=== PATIENT | female | born 1995 | race American Indian/Alaskan Native ===

== ENCOUNTER 2018-05-07 10:35 | Emergency (ER) | payer SELFPAY ==
[2018-05-07 10:54] VITALS: BP 132/94
[2018-05-07 11:33] LABS: Bilirubin,Urine NEG (Negative); Blood,Urine NEG (Negative); Color,Urine Amber (Yellow); Mucus,Urine 3+ /HPF
[2018-05-07 11:34] LABS: HCG Qualitative,Urine Negative (Negative)
--- NOTE | 2018-05-07 11:41 | Emergency Department Report ---
ED General Adult HPI - General Chief complaint: Abdominal Pain Stated complaint: HEAD/STOMACH PAIN VOMITING Time Seen by Provider: 05/07/18 11:33 Source: patient Mode of arrival: Ambulatory Limitations: No Limitations - History of Present Illness Initial comments: Patient is a 23-year-old female who is presenting with vertigo- type symptoms. Past 2 days. Patient states that when she turns her head to the right she feels a spinning sensation and has been nauseous with vomiting. Patient states she feels somewhat better when she is laying on her left side. Patient denies any neck stiffness or fevers chills. Patient does state she has a mild headache. She denies any focal neurological symptoms. - Related Data Previous Rx's Medication Instructions Recorded Last Taken Type Meclizine [Antivert] 25 mg PO TID PRN #12 tablet 05/07/18 Unknown Rx Ondansetron [Zofran Odt] 4 mg PO Q8HR PRN #10 tab.rapdis 05/07/18 Unknown Rx predniSONE [Deltasone] 20 mg PO QDAY #5 tab 05/07/18 Unknown Rx Allergies Allergy/AdvReac Type Severity Reaction Status Date / Time No Known Allergies Allergy Unverified 05/07/18 10:52 ED Review of Systems ROS: Stated complaint: HEAD/STOMACH PAIN VOMITING Other details as noted in HPI Comment: All other systems reviewed and negative ED Past Medical Hx - Past Medical History Previous Medical History?: No - Surgical History Past Surgical History?: No - Social History Smoking Status: Never Smoker Substance Use Type: None - Medications Home Medications: Home Medications Medication Instructions Recorded Confirmed Last Taken Type Meclizine [Antivert] 25 mg PO TID PRN #12 tablet 05/07/18 Unknown Rx Ondansetron [Zofran Odt] 4 mg PO Q8HR PRN #10 tab.rapdis 05/07/18 Unknown Rx predniSONE [Deltasone] 20 mg PO QDAY #5 tab 05/07/18 Unknown Rx ED Physical Exam - General Limitations: No Limitations General appearance: alert, in no apparent distress - Head Head exam: Present: atraumatic, normocephalic - Eye Eye exam: Present: normal appearance - ENT ENT exam: Present: mucous membranes moist - Neck Neck exam: Present: normal inspection - Respiratory Respiratory exam: Present: normal lung sounds bilaterally. Absent: respiratory distress, wheezes, rales, rhonchi - Cardiovascular Cardiovascular Exam: Present: regular rate, normal rhythm. Absent: systolic murmur, diastolic murmur, rubs, gallop - GI/Abdominal GI/Abdominal exam: Present: soft, normal bowel sounds. Absent: distended, tenderness, guarding, rebound - Extremities Exam Extremities exam: Present: normal inspection - Back Exam Back exam: Present: normal inspection - Neurological Exam Neurological exam: Present: alert, oriented X3 - Psychiatric Psychiatric exam: Present: normal affect, normal mood - Skin Skin exam: Present: warm, dry, intact, normal color. Absent: rash ED Course Vital Signs 05/07/18 05/07/18 10:52 11:29 Temperature 98.5 F Pulse Rate 100 H Respiratory 20 17 Rate Blood Pressure 132/94 O2 Sat by Pulse 98 Oximetry ED Medical Decision Making - Medical Decision Making Patient be started on Antivert and Zofran to be discharged home. Critical care attestation.: If time is entered above; I have spent that time in minutes in the direct care of this critically ill patient, excluding procedure time. ED Disposition Clinical Impression: BPV (benign positional vertigo) Qualifiers: Laterality: unspecified laterality Qualified Code(s): H81.10 - Benign paroxysmal vertigo, unspecified ear Disposition: DC-01 TO HOME OR SELFCARE Is pt being admited?: No Does the pt Need Aspirin: No Condition: Stable Instructions: Benign Paroxysmal Positional Vertigo (ED) Time of Disposition: 11:41
[2018-05-07] MEDS ORDERED: ANTIVERT PO ONE (11:45)
[2018-05-07] MEDS ORDERED: ZOFRAN ODT PO ONE (11:45)
== END 2018-05-07 11:46 | disposition home or self-care (01) ==
LOC: ED 10:35
DX: H81.10 Benign paroxysmal vertigo, unspecified ear (principal)
CPT/HCPCS: 81001; 81025; 99283